=== PATIENT | male | born 1945 | race Caucasian/White ===

== ENCOUNTER 2016-04-08 23:54 | Inpatient (IN) | payer OTHER ==
[~2016-04-08] VITALS: Ht 180.3 cm; Wt 108.9 kg
[~2016-04-08 23:54] MED LIST: ATORVASTATIN CA10 M1 PO; GABAPENTIN300 M2 PO; PERCOCET 5-3251 EACH PO; SERTRALINE HCL100 MG PO
--- NOTE | 2016-04-09 00:03 | NUR ---
PT BIBA FROM HOME C/O AMS. PER EMS " CALLED EMS AROUND 2300 PT FELT WEAK AND PTS REPORTED AMS. PT ON ARRIVAL IS A&OX3, PT PLACED ON MONITOR, VSS, (PTS HR A LITTLE TACHY, DR SUBRAMANIAN IN FOR EVAL.
--- NOTE | 2016-04-09 00:06 | ED AMS/SEIZURE/WEAK/DIZZY ---
History of Present Illness General Chief Complaint: Altered Mental Status Stated Complaint: ALTERED MENTAL STATUS Source: patient Exam Limitations: no limitations Vital Signs & Intake/Output Vital Signs & Intake/Output Vital Signs Date Time Temp Pulse Resp B/P Pulse O2 O2 Flow FiO2 Ox Delivery Rate 04/09 0408 98.6 86 18 104/62 92 Room Air 04/09 0001 94 Room Air 04/08 2358 98.7 100 18 117/69 94 Room Air ED Intake and Output 04/09 0000 04/08 1200 Intake Total Output Total Balance Patient 210 lb Weight Allergies Coded Allergies: NO KNOWN ALLERGIES (05/09/11) Reconcile Medications Atorvastatin Calcium 10 MG TABLET 1 TAB PO CHOLESTEROL (Reported) Gabapentin 300 MG CAPSULE 1 CAP PO 4 TIMES/DAY NEUROPATHY (Reported) Oxycodone HCl/Acetaminophen (Percocet 5-325 MG Tablet) 5 MG-325 MG TABLET 1 TAB PO BID PRN PAIN Sertraline HCl 100 MG TABLET 1 TAB PO DAILY UNK (Reported) Triage Note: PT BIBA FROM HOME C/O AMS. PER EMS " CALLED EMS AROUND 2300 PT FELT WEAK AND PTS REPORTED AMS. PT ON ARRIVAL IS A&OX3, PT PLACED ON MONITOR, VSS, (PTS HR A LITTLE TACHYDR SUBRAMANIAN IN FOR EVAL. Triage Nurses Notes Reviewed? yes Onset: Gradual Duration: hour(s): Timing: recent history Injury Environment: home Severity: moderate Modifying Factors: Improves With: rest. Associated Symptoms: weakness HPI: 70-year-old gentleman with a history of vascular dementia presents with increased weakness. His states that he developed a shuffling gait some time after and her. It took them one hour to climb 6 steps. He was also confused and minimally responsive for a period of several hours. His states that in the ED he is presently still slightly confused but improved from the episode at home. He has no fever chills nausea vomiting diarrhea chest pain shortness of breath. Past History Travel History Traveled to [place] past 21 day No Medical History Any Pertinent Medical History? see below for history Neurological: vertigo EENT: NONE Cardiovascular: NONE Respiratory: NONE Gastrointestinal: NONE Hepatic: NONE Renal: RENAL CALCULI Musculoskeletal: LOW BACK PAIN CHRONIC Psychiatric: NONE Endocrine: NONE Blood Disorders: NONE Cancer(s): NONE Other Medical Hx: peripheral neuropathy, MULTIPLE falls, dementia, hyper lipidemia and depression Surgical History Surgical History: non-contributory Psychosocial History What is your primary language Colombian Tobacco Use: Refused to answer Family History Hx Contributory? No Review of Systems Review of Systems Constitutional: Reports: no symptoms. EENTM: Reports: no symptoms. Respiratory: Reports: no symptoms. Cardiovascular: Reports: no symptoms. GI: Reports: no symptoms. Genitourinary: Reports: no symptoms. Musculoskeletal: Reports: no symptoms. Skin: Reports: no symptoms. Neurological/Psychological: Reports: no symptoms. Hematologic/Endocrine: Reports: no symptoms. Immunologic/Allergic: Reports: no symptoms. All Other Systems: Reviewed and Negative Physical Exam Physical Exam General Appearance: well developed/nourished, no apparent distress, alert, awake Head: atraumatic, normal appearance Eyes: Bilateral: normal appearance, PERRL, EOMI. Ears, Nose, Throat: normal pharynx, normal ENT inspection Neck: normal inspection, supple, full range of motion Respiratory: normal breath sounds, chest non-tender, no respiratory distress, quiet respiration, lungs clear Cardiovascular: regular rate/rhythm Gastrointestinal: normal bowel sounds, soft, non-tender, no organomegaly Extremities: normal range of motion Neurologic/Psych: no motor/sensory deficits, awake, alert, a and Ox 2 Reflexes: 1+: bicep (R), bicep (L), knee (R), knee (L). Skin: intact, normal color, warm/dry Core Measures ACS in differential dx? No CVA/TIA Diagnosis: No Severe Sepsis Present: No Septic Shock Present: No Progress Differential Diagnosis: CVA/stroke, drug intoxication, electrolyte imbalance, hypoglycemia, intracranial Hem., intracranial mass/tumor Plan of Care: Orders Procedure Date/time Status Nothing by Mouth 04/09 B Active Saline Lock 04/[address] in observation 04/09 411 Active Misc Message 04/09 411 Active ED Holding Orders 04/09 411 Active Vital Signs 04/09 411 Active Code Status 04/09 411 Active Patient Data 04/09 040 Active Add-on Test (ER Only) 04/09 0346 Active URINALYSIS 04/09 0236 Complete URINE DRUG SCREEN FOR ER ONLY 04/09 8 Complete TROPONIN LEVEL 04/09 8 Complete ETHANOL 04/09 8 Complete COMPREHENSIVE METABOLIC PANEL 04/09 8 Complete CBC WITHOUT DIFFERENTIAL 04/09 8 Complete EKG 04/09 8 Active Intake & Output 04/08 2123 Active Laboratory Tests 04/09/16 0236: Urine Opiates Screen 120.00, Methadone Screen 41, Barbiturate Screen < 60, Ur Phencyclidine Scrn < 6.00, Amphetamines Screen < 100, U Benzodiazepines Scrn 134 , Urine Cocaine Screen < 50, Urine Cannabis Screen < 5.00, Urine Color YEL, Urine Clarity CLEAR, Urine pH 6.0, Ur Specific [place] 1.025, Urine Protein 30 H, Urine Ketones TRACE H, Urine Nitrite NEG, Urine Bilirubin NEG, Urine Urobilinogen 0.2, Ur Leukocyte Esterase TRACE H, Ur Microscopic SEDIMENT EXAMINED, Urine RBC RARE, Urine WBC 3-5 H, Hyaline Casts 1-3 H, Urine Mucus RARE, Urine Hemoglobin TRACE-INTACT H, Urine Glucose NEG 04/09/16 0040: Anion Gap 9, Estimated GFR 54 L, BUN/Creatinine Ratio 15.4, Glucose 120 H, Calcium 9.1, Total Bilirubin 0.7, AST 17, ALT 32, Alkaline Phosphatase 78, Troponin I < 0.01, Total Protein 7.0, Albumin 4.0, Globulin 3.0, Albumin/ Globulin Ratio 1.3, CBC w Diff NO MAN DIFF REQ, RBC 4.63 L, MCV 85.7, MCH 29.6, RDW 13.4, MPV 9.1, Gran % 91.1 H, Lymphocytes % 3.3 L, Monocytes % 4.5, Eosinophils % 1.0, Basophils % 0.1, Absolute Granulocytes 13.6 H, Absolute Lymphocytes 0.5 L, Absolute Monocytes 0.7 H, Absolute Eosinophils 0.2, Absolute Basophils 0, PUBS MCHC 34.5, Serum Alcohol < 10.0 Diagnostic Imaging: Viewed by Me: CT Scan. Discussed w/RAD: CT Scan. Radiology Impression: head CT: No acute disease CXR Impression: mild central fullness without overt edema Initial ED EKG: normal axis, normal intervals, normal p-waves, normal QRS complex, normal sinus rhythm Comments: PATIENT: ENRIKE HUNTLEY PRESENT AGE: 70 PATIENT ACCOUNT NO: [id number] : 43 LOCATION: [facility] ORDERING PHYSICIAN: SADE SUBRAMANIAN MD SERVICE DATE: 04/09/16 EXAM TYPE: CAT - CT HEAD WO IV CONTRAST EXAMINATION: CT HEAD WITHOUT CONTRAST CLINICAL INFORMATION: Mental status change. COMPARISON: Head CT May 05 2010. TECHNIQUE: Contiguous axial imaging was performed from the skull base to vertex without intravenous administration of contrast. FINDINGS: There is no intracranial hemorrhage, hydrocephalus, extra-axial surface collection, midline shift, or other herniation pattern. Moderate chronic microangiopathy and global cerebral volume loss. Johnson to white matter differentiation is diffusely maintained without evidence of an evolved acute territorial infarct. The basilar cisterns are preserved. No significant soft tissue abnormality. No acute osseous abnormality. There is mild mucosal thickening throughout the ethmoid air cells. The remaining visualized paranasal sinuses and the mastoid air cells are well-aerated. IMPRESSION: - No acute intracranial abnormality. - Moderate chronic microangiopathy and global cerebral volume loss. DICTATED BY: DIRK BOWIE MD DATE/TIME DICTATED:04/09/16200 DAILY SALES AUDIT CLERK:DUBOSE DATE/TIME TRANSCRIBED:04/09/16200 CONFIDENTIAL, DO NOT COPY WITHOUT APPROPRIATE AUTHORIZATION. <Electronically signed in Other Vendor System> SIGNED BY: DIRK BOWIE MD 04/09/16209 PATIENT: ENRIKE HUNTLEY PRESENT AGE: 70 PATIENT ACCOUNT NO: [id number] : 43 LOCATION: [facility] ORDERING PHYSICIAN: SADE SUBRAMANIAN MD SERVICE DATE: 04/09/16 EXAM TYPE: RAD - XRY-PORTABLE CHEST XRAY EXAMINATION: XR PORTABLE CHEST CLINICAL INFORMATION: Hypoxia. COMPARISON: Chest x-ray 12/23/2015. TECHNIQUE: Portable AP view of the chest was obtained. FINDINGS: Low lung volumes. Mild bibasilar atelectasis. No focal consolidation, pleural effusion, or pneumothorax. Central vascular congestion without overt edema. Cardiac silhouette is mildly enlarged and unchanged. There are no acute osseous findings. IMPRESSION: Low lung volumes with mild bibasilar opacities that are favored to reflect atelectasis. Central vascular congestion without overt edema. DICTATED BY: DIRK BOWIE MD DATE/TIME DICTATED:04/09/16140 DAILY SALES AUDIT CLERK:DUBOSE DATE/TIME TRANSCRIBED:04/09/16140 CONFIDENTIAL, DO NOT COPY WITHOUT APPROPRIATE AUTHORIZATION. <Electronically signed in Other Vendor System> SIGNED BY: DIRK BOWIE MD 04/09/16146 Departure Departure Disposition: STILL A PATIENT Condition: Stable Clinical Impression Primary Impression: Weakness Referrals: UNKNOWN (PCP/Family) Departure Forms: Customer Survey General Discharge Information Observation Note Spoke With: MELISSA GAMBOA MD Physician Advisor Notified: DIRK PARSONS DO Place Patient In: Non-ED OBS Care Area Rationale for Observation: My rational for observation is as follows . Patient with episode of profound weakness of uncertain etiology. The differential includes TIA versus parkinsonism versus progressive dementia. Patient merits urgent neurologic consultation possibly an MRI as well as a PT OT consult.
--- NOTE | 2016-04-09 00:44 | NUR ---
IV ACCESS ESTABLISHED BY THIS RN LAC #[id number], LABS DRAWN AND SENT TO LAB ([facility], [facility], [facility], [place], [facility]. PT INFORMED A URINE SAMPLE IS NEEDED. URINAL GIVEN TO PT
[2016-04-09 01:10] LABS: ABSOLUTE BASOPHIL COUNT 0 /CUMM (0.0-0.2); ABSOLUTE EOSINOPHIL COUNT 0.2 /CUMM (0.0-0.7); ABSOLUTE GRANULOCYTE CT 13.6 /CUMM (1.4-6.5); ABSOLUTE LYMPH COUNT 0.5 /CUMM (1.2-3.4); ABSOLUTE MONOCYTE COUNT 0.7 /CUMM (0.10-0.60); BASOPHIL % 0.1 % (0.0-2.0); HEMATOCRIT 39.7 % (42-52); MEAN CORPUSCULAR HGB 29.6 PG (27.0-31.0); MEAN CORPUSCULAR HGB CONC 34.5 G/DL (33.0-37.0); MEAN CORPUSCULAR VOLUME 85.7 FL (80.0-94.0); MEAN PLATELET VOLUME 9.1 FL (7.4-10.4); RBC DISTRIBUTION WIDTH 13.4 % (11.5-14.5); RED BLOOD CELL CT 4.63 /CUMM (4.70-6.10); WHITE BLOOD CELL COUNT 14.9 /CUMM (4.8-10.8)
[2016-04-09 01:33] LABS: GRANULOCYTE % 91.1 % (42.2-75.2); PLATELET COUNT 190 /CUMM (130-400)
--- NOTE | 2016-04-09 01:38 | NUR ---
PT TO CT SCAN
--- NOTE | 2016-04-09 01:42 | NUR ---
PT BACK FROM CT SCAN
--- NOTE | 2016-04-09 01:47 | RADIOLOGY REPORT ---
EXAMINATION: XR PORTABLE CHEST CLINICAL INFORMATION: Hypoxia. COMPARISON: Chest x-ray 12/23/2015. TECHNIQUE: Portable AP view of the chest was obtained. FINDINGS: Low lung volumes. Mild bibasilar atelectasis. No focal consolidation, pleural effusion, or pneumothorax. Central vascular congestion without overt edema. Cardiac silhouette is mildly enlarged and unchanged. There are no acute osseous findings. IMPRESSION: Low lung volumes with mild bibasilar opacities that are favored to reflect atelectasis. Central vascular congestion without overt edema.
--- NOTE | 2016-04-09 02:10 | CT SCAN REPORT ---
EXAMINATION: CT HEAD WITHOUT CONTRAST CLINICAL INFORMATION: Mental status change. COMPARISON: Head CT May 05 2010. TECHNIQUE: Contiguous axial imaging was performed from the skull base to vertex without intravenous administration of contrast. FINDINGS: There is no intracranial hemorrhage, hydrocephalus, extra-axial surface collection, midline shift, or other herniation pattern. Moderate chronic microangiopathy and global cerebral volume loss. Johnson to white matter differentiation is diffusely maintained without evidence of an evolved acute territorial infarct. The basilar cisterns are preserved. No significant soft tissue abnormality. No acute osseous abnormality. There is mild mucosal thickening throughout the ethmoid air cells. The remaining visualized paranasal sinuses and the mastoid air cells are well-aerated. IMPRESSION: - No acute intracranial abnormality. - Moderate chronic microangiopathy and global cerebral volume loss.
--- NOTE | 2016-04-09 02:40 | NUR ---
[facility] D[facility]RELL SENT URINE TRIO AND AMBULATED PT WITH STEADY GAIT USING WALKER.
--- NOTE | 2016-04-09 03:15 | NUR ---
CRITICAL TEST RESULTS [id number] ENRIKE HUNTLEY 70 M TESTS AND RESULTS: LACTIC 4.4 Results received and read back by: SHEEBA METCALF Results received date and time: 04/09/16315 The following provider was notified of the results, and read the results back: RICCIBARBARA Notified date and time: 04/09/16 at 0316
--- NOTE | 2016-04-09 03:29 | NUR ---
THIS RN TRIED TO CALL THE LAB TO SEE IF PTS URINE HAS RESULTS, NO ANSWER IN THE LAB
--- NOTE | 2016-04-09 03:46 | NUR ---
DR SUBRAMANIAN IN FOR POC
--- NOTE | 2016-04-09 04:28 | History & Physical ---
BILLY KING,[facility] [place] 04/09/16 0428: General Information and HPI MD Statement: I have seen and personally examined ENRIKE HUNTLEY and documented this H&P. The patient is a 70 year old M who presented with a patient stated chief complaint of confusion, leg weakness and shuffling gait. Source of Information: patient, family Exam Limitations: no limitations History of Present Illness: Mr. Huntley is a 70 y/o M with PMHx of vascular parkinsonism, peripheral neuropathy , HTN and dementia who presents to the ED with confusion, leg weakness and shuffling gait. The night of current presentation, patient's found him slouched on the couch and unable to get up. He could only shuffle his feet a few steps and was very confused and lethargic. Of note, patient walks with a walker at baseline. She called EMS who brought patient to the ED. By the time patient was seen in the ED, his gait had improved but he was still not back to baseline and appeared cautious and slow when walking, per his . His confusion had improved as well. Patient endorsed headache and dizziness but no falls. There was no chest pain, palpitations or shortness of breath. Of note, patient had a flu shot in the morning prior to current presentation. Patient follows up with a neurologist at [facility] and was diagnosed with vascular parkinsonism per his . Allergies/Medications Allergies: Coded Allergies: NO KNOWN ALLERGIES (05/09/11) Past History Travel History Traveled to [place] past 21 day No Medical History Neurological: dementia, peripheral neuropathy, vertigo, vascular parkinsonism EENT: NONE Cardiovascular: hypertension, hyperlipidemia Respiratory: NONE Gastrointestinal: NONE Hepatic: NONE Renal: nephrolithiasis Musculoskeletal: chronic back pain, falls Psychiatric: depression Endocrine: NONE Blood Disorders: NONE Cancer(s): NONE Surgical History Surgical History: non-contributory Past Family/Social History Psychosocial History Where do you live? Home Functional Ability Ambulation: walker Review of Systems Review of Systems Constitutional: Reports: no symptoms. EENTM: Reports: no symptoms. Cardiovascular: Denies: chest pain, palpitations. Respiratory: Denies: short of breath. GI: Reports: no symptoms. Denies: constipation, diarrhea. Genitourinary: Reports: no symptoms. Musculoskeletal: Reports: no symptoms. Skin: Reports: no symptoms. Neurological/Psychological: Reports: confusion, unable to move lower ext, weakness. Hematologic/Endocrine: Reports: no symptoms. Immunologic/Allergic: Reports: no symptoms. All Other Systems: Reviewed and Negative Exam & Diagnostic Data Last 24 Hrs of Vital Signs/I&O Vital Signs Date Time Temp Pulse Resp B/P Pulse O2 O2 Flow FiO2 Ox Delivery Rate 04/09 0857 98.1 71 20 110/54 92 Room Air 04/09 0800 Room Air 04/09 0559 98.5 76 18 116/68 95 Room Air 04/09 0408 98.6 86 18 104/62 92 Room Air 04/09 0001 94 Room Air 04/08 2358 98.7 100 18 117/69 94 Room Air Intake & Output 04/09 1600 04/09 0800 04/09 0000 Intake Total 70 Output Total 150 Balance -80 Intake, IV 20 Intake, Oral 50 Output, Urine 150 Patient 108.862 kg 95.254 kg Weight Physical Exam General Appearance Alert, Cooperative, No Acute Distress, Follows Commands Skin No Rashes HEENT PERRLA Neck Supple, No JVD Cardiovascular Regular Rate, Normal S1, Normal S2 Lungs Clear to Auscultation Abdomen Soft, No Tenderness, Positive Bowel Sounds Neurological Normal Speech, Strength at 5/5 X4 Ext, Sensation Intact, Cranial Nerves 3-12 NL Extremities No Clubbing, No Cyanosis, No Edema Last 24 Hrs of Labs/Rm: Laboratory Tests 04/09/16 0635: Anion Gap 10, Estimated GFR 60, BUN/Creatinine Ratio 16.7, Phosphorus 4.0, Magnesium 2.1, Troponin I < 0.01, Triglycerides 123, Cholesterol 143, LDL Cholesterol, Calc 81, HDL Cholesterol 38 L, Cholesterol/HDL Ratio 4, 25-OH Vitamin D Total 30.0, CBC w Diff NO MAN DIFF REQ, RBC 4.26 L, MCV 87.0, MCH 29.8, RDW 13.3, MPV 9.0, Gran % 82.8 H, Lymphocytes % 9.7 L, Monocytes % 5.7, Eosinophils % 1.5, Basophils % 0.3, Absolute Granulocytes 9.6 H, Absolute Lymphocytes 1.1 L, Absolute Monocytes 0.7 H, Absolute Eosinophils 0.2, Absolute Basophils 0, PUBS MCHC 34.2 04/09/16 0236: Urine Opiates Screen 120.00, Methadone Screen 41, Barbiturate Screen < 60, Ur Phencyclidine Scrn < 6.00, Amphetamines Screen < 100, U Benzodiazepines Scrn 134 , Urine Cocaine Screen < 50, Urine Cannabis Screen < 5.00, Urine Color YEL, Urine Clarity CLEAR, Urine pH 6.0, Ur Specific [place] 1.025, Urine Protein 30 H, Urine Ketones TRACE H, Urine Nitrite NEG, Urine Bilirubin NEG, Urine Urobilinogen 0.2, Ur Leukocyte Esterase TRACE H, Ur Microscopic SEDIMENT EXAMINED, Urine RBC RARE, Urine WBC 3-5 H, Hyaline Casts 1-3 H, Urine Mucus RARE, Urine Hemoglobin TRACE-INTACT H, Urine Glucose NEG 04/09/16 0040: Anion Gap 9, Estimated GFR 54 L, BUN/Creatinine Ratio 15.4, Glucose 120 H, Calcium 9.1, Total Bilirubin 0.7, AST 17, ALT 32, Alkaline Phosphatase 78, Troponin I < 0.01, Total Protein 7.0, Albumin 4.0, Globulin 3.0, Albumin/ Globulin Ratio 1.3, CBC w Diff NO MAN DIFF REQ, RBC 4.63 L, MCV 85.7, MCH 29.6, RDW 13.4, MPV 9.1, Gran % 91.1 H, Lymphocytes % 3.3 L, Monocytes % 4.5, Eosinophils % 1.0, Basophils % 0.1, Absolute Granulocytes 13.6 H, Absolute Lymphocytes 0.5 L, Absolute Monocytes 0.7 H, Absolute Eosinophils 0.2, Absolute Basophils 0, PUBS MCHC 34.5, Serum Alcohol < 10.0 Microbiology 04/09 632 URINE ROUT: Urine Culture - COLB 04/09 632 BLOOD: Blood Culture - COLB 04/09 632 BLOOD: Blood Culture - COLB Diagnostic Data EKG Results NSR CXR Results Low lung volumes with mild bibasilar opacities that are favored to reflect atelectasis. Central vascular congestion without overt edema. Other Results CT HEAD W/O IV CONTRAST: - No acute intracranial abnormality. - Moderate chronic microangiopathy and global cerebral volume loss. Assessment/Plan Assessment: Mr. Huntley is a 70 y/o M with PMHx of vascular parkinsonism, peripheral neuropathy and dementia who presents to the ED with confusion, leg weakness and shuffling gait. #Confusion/leg weakness/shuffling gait: Symptoms could represent progression of vascular parkinsonism although TIA needs to be ruled out. CT Head with chronic microangiopathy and global cerebral volume loss but no acute intracranial abnormalities. * Admit to telemetry for continuous cardiac monitoring. * Neurology consult placed. Appreciate their recs. * NPO pending swallow eval. * Carotid Doppler US ordered to evaluate for carotid artery stenosis. * ECHO ordered to assess for embolic source. * PT/OT consult. * Continue daily low-dose aspirin. * High dose statin, atorvastatin 80 mg PO QD, started in light of significant cerebrovascular disease. Patient was taking atorvastatin 10 mg PO QD prior to admission. #NIYAH: Cr elevated to 1.3 on admission. Previous Cr WNL (0.9) in April 2011. Likely pre-renal 2/2 poor dehydration. * Monitor lytes and kidney function. * Hydrate with 1 bag of NS @ 75 cc/hr. * Avoid nephrotoxic medications. #Leukocytosis: WBC 14.9 on admission. Of unclear etiology. Patient is afebrile without any signs/symptoms of infection. Urinalysis unremarkable. CXR with no evidence of pneumonia. Could be partially secondary to volume contraction, given NIYAH. * Monitor fever, WBC and for signs/symptoms of infection. * BCx and UCx ordered. * Monitor off antibiotics. #Peripheral neuropathy: * Continue prior to admission gabapentin 300 mg PO QID and sertraline 100 mg PO QD. Diet: NPO Fluids: NS @ 75 cc/hr Pain: Tylenol 650 mg PO Q6H PRN for mild pain (scale 1-3) DVT PPx: HSQ and ALPs CODE: DNR/DNI As Ranked By This Provider Problem List: 1. Confusion 2. Leg weakness, bilateral 3. Shuffling gait 4. Vascular parkinsonism 5. Dementia 6. Leukocytosis 7. Peripheral neuropathy 8. NIYAH (acute kidney injury) Core Measures/Miscellaneous Acute Coronary Syndrome ACS Diagnosis: No Cerebrovascular Accident CVA/TIA Diagnosis: No Congestive Heart Failure CHF Diagnosis: No Venous Thromboembolism VTE Risk Factors: Acute medical illness, Age > 40, Immobility, paresis, Obesity VTE Prophylaxis Ordered Inpt: Mech & Pharm No Mech VTE prophylaxis d/t: No contraindications No VTE Pharm Prophylaxis d/t: No contraindications VTE Diagnosis: No VTE Type: NONE VTE Confirmed by (Test): NONE Severe Sepsis Severe Sepsis Present: No Septic Shock Septic Shock Present: No Miscellaneous Documentation Attending Case Discussed With: CHANTEL JUAREZ MD Primary Care Physician: UNKNOWN Patient sees these Specialists Neurologist at [facility] Level of Patient Care: Telemetry EDWIN TIDWELL 04/09/16 0614: General Information and HPI Allergies/Medications Home Med list Alfuzosin HCl (Alfuzosin HCl ER) 10 MG TAB.ER.24H 1 TAB PO DAILY HTN ( Reported) Aspirin (Ecotrin*) 81 MG TABLET.DR 1 TAB PO DAILY HTN (Reported) Atorvastatin Calcium 10 MG TABLET 1 TAB PO CHOLESTEROL (Reported) Gabapentin 300 MG CAPSULE 1 CAP PO 4 TIMES/DAY NEUROPATHY (Reported) Oxycodone HCl/Acetaminophen (Percocet 5-325 MG Tablet) 5 MG-325 MG TABLET 1 TAB PO BID PRN PAIN Sertraline HCl 100 MG TABLET 1 TAB PO DAILY UNK (Reported) Resident Review Statement Resident Statement: examined this patient, discussed with landscape maintenance internship, agreed with landscape maintenance internship Other Findings: Patient is a 70-year-old gentleman with past medical history significant for vascular dementia, possible underlying parkinsonism, has been seen and evaluated at [facility], presented to the ED with a chief complaint of confusion lower extremity weakness and shuffling gait. The told that since evening last night patient was very confused and lethargic, developed shuffling gait and his symptoms were getting worse to the point that he could barely move. His symptoms are concerning and EMS was called in and was brought to the ER for further assessment. In the ER patient denied any chest discomfort or breathing or palpitations. Reported some dizziness without any lightheadedness or falls. He had a flu shot in the morning yesterday. Denies any diarrhea or constipation. His symptoms gradually improved after arrival in the ER. He had an extensive workup done at [facility] for his vascular dementia, has been diagnosed with possible parkinsonism. Vitals on admission: Depression 98.7, pulse 100, respiratory rate 18, blood pressure 107/69 on room air. On examination general Appearance: Alert, No Acute Distress Skin: Grossly normal HEENT: PEERLA Neck: Supple, No JVD Cardiovascular: S1 plus S2 +0 without any murmurs Lungs: bilateral basal crackles Abdomen: Normal Bowel Sounds, Soft, No Tenderness Neurological: Normal Speech, Strength at 5/5 X4 Ext, Cranial Nerves 3-12 NL, Reflexes 2+ Extremities: No edema in the lower lower extremity. Pertinent labs: Leukocytosis 14.9, with H&H 13.7/39.7, and elevated creatinine 1.3. Chest x-ray :Low lung volumes with mild bibasilar opacities that are favored to reflect atelectasis. Central vascular congestion without overt edema. CT head :No acute intracranial abnormality. Moderate chronic microangiopathy and global cerebral volume loss Assessment and plan: 1 acute onset confusion lower extremity weakness without any clear focal deficits: Possible TIA/worsening parkinsonism: * We'll admit the patient to telemetry floor * Obtain neurology consult in the morning * We'll consider doing carotid Doppler ultrasound and echocardiogram * Performed swallow evaluation the morning * PT/OT consult in the morning. * Continue aspirin increase her atorvastatin 2. Leukocytosis * .Chest x-ray revealed Low lung volumes with mild bibasilar opacities that are favored to reflect atelectasis. * Send blood cultures * Monitor vitals every 4 hours * Hold any antibiotics for now. 3. History of peripheral neuropathy * Continue home dose of sertraline and gabapentin 4. Acute kidney injury * Elevated creatinine * Will give one bag of normal saline * Repeat BEP in the morning * Avoid nephrotoxic agents. 5. DVT prophylaxis with heparin Patient is DNR/DNI CHANTEL JUAREZ MD 04/09/16 2316: Core Measures/Miscellaneous Cerebrovascular Accident CVA/TIA Diagnosis: Yes Attending MD Review Statement Attending Statement Attending MD Statement: examined this patient, discuss w/resident/PA/CEILING CLEANER, agreed w/resident/PA/CEILING CLEANER, reviewed EMR data (avail), discussed with nursing, discussed with case mgmt, reviewed images, amended to note Attending Assessment/Plan: The patient is a 70 yo male with h/o Parkinson's, peripheral neuropathy, HTN, and dementia who presented in the ED with c/o confusion, "dizziness"- vertigo, falling and weakness in his upper and lower extremities (lower > upper). EMS was called when his noted that he could not get up. In the ED symptoms improved. He denied any chest pain, palpitations, dyspnea, or headache. Physical Exam: VS: T 98.7 P 100 R 18, BP 117/69, PO 94% RA HEENT- eyes- PERRLA- blind left eye, no nystagmus clark- moist mucosa Neck: no JVD or bruits Chest: clear Cor: RRR, nl S1, S2 w/o murm Abd: BS+, soft, NT Ext: no edema, pulses 1+ Neuro: alert, poor historian, non-focal, gait not tested. Labs/Tests: as above, CT negative. Impression/Plan: #Transient LE weakness/Vertigo/Confusion- suspect posterior circulation CVA. Plan: Admit to Telemetry- monitor for arrhythmia. Carotid US/ECHO MRI of brain this morning (particular attention to post circulation). #NIYAH- mild with Cr 1.3. Most likely mildly volume depleted. Plan: IV hydration x 1 bag and follow. #Leukocytosis- most likely stress induced. Plan: Follow-up H/H. No antibiotics at present. #Peripheral Neuropathy- stable. Plan: Continue Gabapentin.
--- NOTE | 2016-04-09 05:09 | NUR ---
REPORT GIVEN TO MEEK CRYSTAL.
--- NOTE | 2016-04-09 05:22 | NUR ---
HOUSE STAFF IN
[2016-04-09] MEDS ORDERED: ASPIRIN EC81 M1 PO (05:57)
[2016-04-09] MEDS ORDERED: ALFUZOSIN HCL E10 MG PO (05:58)
[2016-04-09 05:59] VITALS: BP 116/68
[2016-04-09 07:49] LABS: ABSOLUTE BASOPHIL COUNT 0 /CUMM (0.0-0.2); ABSOLUTE EOSINOPHIL COUNT 0.2 /CUMM (0.0-0.7); ABSOLUTE GRANULOCYTE CT 9.6 /CUMM (1.4-6.5); ABSOLUTE LYMPH COUNT 1.1 /CUMM (1.2-3.4); ABSOLUTE MONOCYTE COUNT 0.7 /CUMM (0.10-0.60); BASOPHIL % 0.3 % (0.0-2.0); EOSINOPHIL % 1.5 % (0-5); GRANULOCYTE % 82.8 % (42.2-75.2); MEAN CORPUSCULAR HGB 29.8 PG (27.0-31.0); MEAN CORPUSCULAR HGB CONC 34.2 G/DL (33.0-37.0); PLATELET COUNT 173 /CUMM (130-400); RBC DISTRIBUTION WIDTH 13.3 % (11.5-14.5); RED BLOOD CELL CT 4.26 /CUMM (4.70-6.10); WHITE BLOOD CELL COUNT 11.6 /CUMM (4.8-10.8)
--- NOTE | 2016-04-09 08:23 | PN- Housestaff ---
MARYJANEJENNIFER 04/09/16 0822: Subjective Follow-up For: 1. TIA/CVA 2. Acute kidney injury 3. Parkinson's Complaints: no complaints Subjective: Interval history: This morning Mr. Marquez reports improvement in his mentation and ability to ambulate. He reports that lower extremity weakness has improved. He denies any dizziness, headache, blurred vision, chest pain, palpitations, shortness of breath. Review of Systems Constitutional: Reports: see HPI. EENTM: Reports: no symptoms. Cardiovascular: Reports: no symptoms. Respiratory: Reports: no symptoms. Gastrointestinal: Reports: see HPI. Genitourinary: Reports: no symptoms. Musculoskeletal: Reports: see HPI. Objective Last 24 Hrs of Vital Signs/I&O Vital Signs Date Time Temp Pulse Resp B/P Pulse O2 O2 Flow FiO2 Ox Delivery Rate 04/09 0857 98.1 71 20 110/54 92 Room Air 04/09 0800 Room Air 04/09 0559 98.5 76 18 116/68 95 Room Air 04/09 0408 98.6 86 18 104/62 92 Room Air 04/09 0001 94 Room Air 04/08 2358 98.7 100 18 117/69 94 Room Air Intake & Output 04/09 1600 04/09 0800 04/09 0000 Intake Total 70 Output Total 150 Balance -80 Intake, IV 20 Intake, Oral 50 Output, Urine 150 Patient 240 lb 210 lb Weight Physical Exam General Appearance: Alert, Oriented X3, Cooperative, No Acute Distress Skin: No Breakdown HEENT: PERRLA, EOMI, Mucous Membr. moist/pink Neck: Supple Cardiovascular: Regular Rate, Normal S1, Normal S2 Lungs: Clear to Auscultation, Normal Air Movement Abdomen: Normal Bowel Sounds, Soft, No Tenderness Neurological: Normal Speech, Strength at 5/5 X4 Ext, Normal Tone, Sensation Intact, Cranial Nerves 3-12 NL Extremities: No Edema, Normal Pulses Current Medications: Current Medications Sig/Debra Start time Last Medication Dose Route Stop Time Status Admin Acetaminophen 650 MG Q6P PRN 04/09 0600 AC PO Aspirin Buffered 81 MG DAILY 04/09 1000 AC PO Atorvastatin Calcium 10 MG 1700 04/09 1700 AC PO Gabapentin 300 MG 4 TIMES/DAY 04/09 1000 AC PO Heparin Sodium 5,000 UNIT Q8 04/09 0600 AC (Porcine) SC Sertraline HCl 100 MG DAILY 04/09 1000 AC PO Sodium Chloride 1,000 ML ONCE ONE 04/09 0600 AC 04/09 IV 04/09 1919 0618 Last 24 Hrs of Lab/Rm Results Last 24 Hrs of Labs/Mics: Laboratory Tests 04/09/16 0635: Anion Gap 10, Estimated GFR 60, BUN/Creatinine Ratio 16.7, Phosphorus Pending, Magnesium Pending, Troponin I < 0.01, Triglycerides Pending, Cholesterol Pending , LDL Cholesterol, Calc Pending, HDL Cholesterol Pending, Cholesterol/HDL Ratio Pending, 25-OH Vitamin D Total Pending, CBC w Diff NO MAN DIFF REQ, RBC 4.26 L, MCV 87.0, MCH 29.8, RDW 13.3, MPV 9.0, Gran % 82.8 H, Lymphocytes % 9.7 L, Monocytes % 5.7, Eosinophils % 1.5, Basophils % 0.3, Absolute Granulocytes 9.6 H, Absolute Lymphocytes 1.1 L, Absolute Monocytes 0.7 H, Absolute Eosinophils 0.2, Absolute Basophils 0, PUBS MCHC 34.2 04/09/16 0236: Urine Opiates Screen 120.00, Methadone Screen 41, Barbiturate Screen < 60, Ur Phencyclidine Scrn < 6.00, Amphetamines Screen < 100, U Benzodiazepines Scrn 134 , Urine Cocaine Screen < 50, Urine Cannabis Screen < 5.00, Urine Color YEL, Urine Clarity CLEAR, Urine pH 6.0, Ur Specific [place] 1.025, Urine Protein 30 H, Urine Ketones TRACE H, Urine Nitrite NEG, Urine Bilirubin NEG, Urine Urobilinogen 0.2, Ur Leukocyte Esterase TRACE H, Ur Microscopic SEDIMENT EXAMINED, Urine RBC RARE, Urine WBC 3-5 H, Hyaline Casts 1-3 H, Urine Mucus RARE, Urine Hemoglobin TRACE-INTACT H, Urine Glucose NEG 04/09/16 0040: Anion Gap 9, Estimated GFR 54 L, BUN/Creatinine Ratio 15.4, Glucose 120 H, Calcium 9.1, Total Bilirubin 0.7, AST 17, ALT 32, Alkaline Phosphatase 78, Troponin I < 0.01, Total Protein 7.0, Albumin 4.0, Globulin 3.0, Albumin/ Globulin Ratio 1.3, CBC w Diff NO MAN DIFF REQ, RBC 4.63 L, MCV 85.7, MCH 29.6, RDW 13.4, MPV 9.1, Gran % 91.1 H, Lymphocytes % 3.3 L, Monocytes % 4.5, Eosinophils % 1.0, Basophils % 0.1, Absolute Granulocytes 13.6 H, Absolute Lymphocytes 0.5 L, Absolute Monocytes 0.7 H, Absolute Eosinophils 0.2, Absolute Basophils 0, PUBS MCHC 34.5, Serum Alcohol < 10.0 Microbiology 04/09 632 URINE ROUT: Urine Culture - ORD 04/09 632 BLOOD: Blood Culture - ORD 04/09 632 BLOOD: Blood Culture - ORD Assessment/Plan Assessment: 70-year-old gentleman with past medical history significant for vascular dementia, possible underlying parkinsonism, has been seen and evaluated at [facility], presented to the ED with a chief complaint of confusion lower extremity weakness and shuffling gait. Head CT: - No acute intracranial abnormality. - Moderate chronic microangiopathy and global cerebral volume loss. MRI head (04/09/2016): * Motion degraded study demonstrates a small area of possible acute infarction in the right middle cerebellar peduncle, superimposed upon advanced chronic small vessel ischemic changes and volume loss. * Problem list: 1. TIA/CVA: Acute infarct right middle cerebellar peduncle 2. Acute kidney injury 3. History of Parkinson's disease Plan: 1. TIA/CVA * MRI as indicated above. Will await neurology recommendations for follow-up * Patient passed bedside swallow evaluation. Heart healthy diet started * Follow-up lipid panel in the a.m. 2. Acute kidney injury * Baseline creatinine of 0.9, 1.3 on admission with interval improvement with fluid hydration * Follow-up renal function and discontinue fluids once tolerating by mouth intake * Patient's symptoms on admission could partially be secondary to gabapentin side effects in the setting of acute kidney injury. We'll decrease gabapentin from 300 down to 200 mg QID. Adjust back to his normal home dose once renal function has improved 3. History of Parkinson's disease * Stable at this time. Patient has an outpatient follow-up with her neurologist /maintenance trainer 4. Diet * Heart healthy 5. DVT prophylaxis * Heparin 5000 units subcutaneous 6. CODE STATUS * DNR/DNI Problem List: 1. Cerebellar infarction 2. Vascular parkinsonism 3. NIYAH (acute kidney injury) 4. Confusion Pain Ratin Pain Location: NA Pain Goal: Pain 4 or less Pain Plan: NA Tomorrow's Labs & Rationales: Lipid panel BEP: Acute kidney injury follow-up DVT/Prophylaxis: mechanical, pharmacological Consulting Request: Consulting Specialty: Neurology CHANTEL JUAREZ MD 04/09/16 2314: Attending MD Review Statement Attending Statement Attending MD Statement: examined this patient, discuss w/resident/PA/MACHINE RECORDS UNITS SUPERVISOR, agreed w/resident/PA/MACHINE RECORDS UNITS SUPERVISOR, reviewed EMR data (avail), discussed with nursing, discussed with case mgmt, reviewed images, amended to note Attending Assessment/Plan: The patient was seen and discussed with house staff.
--- NOTE | 2016-04-09 08:52 | Admission Certification ---
Admission Certification Certification Statement - As attending physician, I certify that at the time of - admission, based on clinical presentation, severity of - symptoms, need for further diagnostic testing and - therapeutic interventions, and risk of adverse outcomes - without in-hospital treatment, in my clinical assessment, - this patient requires an acute hospital stay for a minimum - of two nights or longer. I have also considered psychsocial - factors such as support system, advanced age, financial - issues, cognitive issues, and failed out-patient treatments, - past re-admission history, safety of patient, and lack of - compliance as applicable. Specific rationale supporting this admission is: Patient admitted to observation telemetry for possible TIA. Presented with vertigo/dizziness, falls, and generalized weakness. Needs monitoring, carotic US , MRI brain, Neuro consult.
[2016-04-09 08:57] VITALS: BP 110/54
--- NOTE | 2016-04-09 10:52 | MRI REPORT ---
EXAMINATION: MR BRAIN WITHOUT CONTRAST CLINICAL INFORMATION: 70-year-old man with weakness and vertigo. COMPARISON: 04/09/[address] TECHNIQUE: MRI of the brain without contrast was obtained using routine sequences. FINDINGS: There is a small region of potential restricted diffusion versus T2 shine through artifact in the right middle cerebellar peduncle that could reflect an area of acute ischemia. This is superimposed upon rather extensive patchy and confluent T2 hyperintense signal seen throughout the supratentorial and pontine white matter, most consistent with advanced chronic microvascular ischemic changes. There is moderate ventriculomegaly and diffuse sulcal widening due to accelerated chronic volume loss. No focal reduced diffusion is seen to suggest acute or subacute cerebral ischemia. No intracranial mass, intracerebral edema, intra-axial blood products, midline shift, or extra-axial collection is visualized. Normal arterial and venous vascular flow voids are present. Moderate mucosal thickening is noted in the ethmoid air cells, right greater than left. There is mild mucosal thickening in the remainder of the paranasal sinuses with a mucus retention cyst in the right maxillary sinus. IMPRESSION: Motion degraded study demonstrates a small area of possible acute infarction in the right middle cerebellar peduncle, superimposed upon advanced chronic small vessel ischemic changes and volume loss.
--- NOTE | 2016-04-09 12:18 | ULTRASOUND REPORT ---
EXAMINATION: US DUPLEX CAROTID AND VERTEBRAL CLINICAL INFORMATION: Confusion, possible TIA. Lower extremity weakness. COMPARISON: None. TECHNIQUE: Real-time ultrasound and Doppler techniques (integrating B-mode 2D vascular images, Doppler spectral analysis and color flow Doppler imaging) were utilized to interrogate the extracranial carotid and vertebral arteries bilaterally. The degree of stenosis determined by criteria similar to NASCET. FINDINGS: There is normal antegrade flow seen in both carotid arteries. There is a soft atherosclerotic plaque seen in both carotid bulbs and proximal ICA. On the right peak systolic/end diastolic velocity distal CCA measures 48/11 cm/second. Peak systolic/end diastolic velocity proximal ICA measures 47/20 cm/second. There is no significant stenosis. On the left peak systolic/end diastolic velocity distal CCA measures 70/17 cm/second. Peak systolic/end diastolic velocity left proximal ICA measures 68/18 cm/second. There is no significant stenosis. There is normal antegrade flow seen in left vertebral artery. The right vertebral artery is not seen. IMPRESSION: No hemodynamically significant stenosis in either carotid artery. Normal antegrade flow seen in left vertebral artery. The right vertebral artery is not visualized.
--- NOTE | 2016-04-09 14:45 | Cons- Neurology ---
General Information and HPI Consulting Request Date of Consult: 04/09/16 Requested By: CHANTEL JUAREZ MD History of Present Illness: 70-year-old male presents with acute low back pain and difficulty with walking. 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 Status. Status appeared to be stable until yesterday when he complained of acute low back pain and difficulty with walking. He took a Percocet; he then felt that he was unable to move his legs. Per notes, states that he appeared to be acutely confused. There was no fall. He denies previous trauma. No associated focal weakness or change in paresthesia. Allergies/Medications Allergies: Coded Allergies: NO KNOWN ALLERGIES (05/09/11) Home Med List: Alfuzosin HCl (Alfuzosin HCl ER) 10 MG TAB.ER.24H 1 TAB PO DAILY HTN ( Reported) Aspirin (Ecotrin*) 81 MG TABLET.DR 1 TAB PO DAILY HTN (Reported) Atorvastatin Calcium 10 MG TABLET 1 TAB PO CHOLESTEROL (Reported) Gabapentin 300 MG CAPSULE 1 CAP PO 4 TIMES/DAY NEUROPATHY (Reported) Oxycodone HCl/Acetaminophen (Percocet 5-325 MG Tablet) 5 MG-325 MG TABLET 1 TAB PO BID PRN PAIN Sertraline HCl 100 MG TABLET 1 TAB PO DAILY UNK (Reported) Current Medications: Current Medications Sig/Debra Start time Last Medication Dose Route Stop Time Status Admin Acetaminophen 650 MG Q6P PRN 04/09 0600 AC PO Aspirin Buffered 81 MG DAILY 04/09 1000 AC 04/09 PO 1141 Atorvastatin Calcium 10 MG 1700 04/09 1700 DC PO Atorvastatin Calcium 80 MG 1700 04/09 1700 AC PO Gabapentin 300 MG 4 TIMES/DAY 04/09 1000 DC PO Gabapentin 200 MG 4 TIMES/DAY 04/09 1000 AC 04/09 PO 1420 Heparin Sodium 5,000 UNIT Q8 04/09 0600 AC 04/09 (Porcine) SC 1420 Sertraline HCl 100 MG DAILY 04/09 1000 AC 04/09 PO 1142 Sodium Chloride 1,000 ML ONCE ONE 04/09 0600 AC 04/09 IV 04/09 1919 0618 Review of Systems Review of Systems: Occasional headache, and dizziness. 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 Occasionally falls No edema No recent fevers Notes memory dysfunction Other systems reviewed and negative Past History Travel History Traveled to [place] past 21 day No Medical History Blood Transfusion Hx: No Neurological: dementia, peripheral neuropathy, vertigo, vascular parkinsonism EENT: NONE Cardiovascular: hypertension, hyperlipidemia Respiratory: NONE Gastrointestinal: NONE Hepatic: NONE Renal: nephrolithiasis Musculoskeletal: chronic back pain, falls Psychiatric: depression Endocrine: NONE Blood Disorders: NONE Cancer(s): NONE PHYSIOTHERAPY AIDE/Reproductive: NONE Surgical History Surgical History: non-contributory Psychosocial History Where Do You Live? Home Smoking Status: Former Smoker Functional Ability Ambulation: walker Exam & Diagnostic Data Vital Signs and I&O Vital Signs Date Time Temp Pulse Resp B/P Pulse O2 O2 Flow FiO2 Ox Delivery Rate 04/09 0857 98.1 71 20 110/54 92 Room Air 04/09 0800 Room Air 04/09 0559 98.5 76 18 116/68 95 Room Air 04/09 0408 98.6 86 18 104/62 92 Room Air 04/09 0001 94 Room Air 04/08 2358 98.7 100 18 117/69 94 Room Air Intake & Output 04/09 1600 04/09 0800 04/09 0000 Intake Total 1060 70 Output Total 150 Balance 1060 -80 Intake, IV 460 20 Intake, Oral 600 50 Output, Urine 150 Patient 240 lb 210 lb Weight Physical Exam: Alert and in no distress, Heart sounds normal, no carotid bruits, distal pulses intact Oriented to place but not time, fund of knowledge impaired, recalls 2 out of 3 objects after 5 minutes time, no dysarthria or aphasia, fully cooperative during exam, attention span good Extraocular movements full, pupils reactive, right fundus could not be evaluated due to opacification, no facial weakness or facial sensory loss, palate tongue and shoulders intact, hearing grossly intact Normal tone and strength in upper and lower extremities No sensory loss to light touch Deep tendon reflexes hypoactive throughout Left plantar reflex questionably upgoing Deep tendon reflexes hypoactive Gait mildly unsteady Last 48 Hours of Lab Results: Laboratory Tests 04/09 04/09 0635 0236 Chemistry Sodium (137 - 145 mmol/L) 144 Potassium (3.5 - 5.1 mmol/L) 3.7 Chloride (98 - 107 mmol/L) 107 Carbon Dioxide (22 - 30 mmol/L) 26 Anion Gap (5 - 16) 10 BUN (9 - 20 mg/dL) 20 Creatinine (0.7 - 1.2 mg/dL) 1.2 Estimated GFR (>60 ml/min) 60 BUN/Creatinine Ratio (7 - 25 %) 16.7 Phosphorus (2.5 - 4.5 mg/dL) 4.0 Magnesium (1.6 - 2.3 mg/dL) 2.1 Troponin I (<0.11 ng/ml) < 0.01 Triglycerides (<150 mg/dL) 123 Cholesterol (< 200 MG/DL) 143 LDL Cholesterol, Calc (65 - 129 mg/dL) 81 HDL Cholesterol (40 - 60 mg/dL) 38 L Cholesterol/HDL Ratio (0.00 - 4.88 %) 4 25-OH Vitamin D Total (30 - 100 ng/ml) 30.0 Hematology CBC w Diff NO MAN DIFF REQ WBC (4.8 - 10.8 /CUMM) 11.6 H RBC (4.70 - 6.10 /CUMM) 4.26 L Hgb (14.0 - 18.0 G/DL) 12.7 L Hct (42 - 52 %) 37.0 L MCV (80.0 - 94.0 FL) 87.0 MCH (27.0 - 31.0 PG) 29.8 RDW (11.5 - 14.5 %) 13.3 Plt Count (130 - 400 /CUMM) 173 MPV (7.4 - 10.4 FL) 9.0 Gran % (42.2 - 75.2 %) 82.8 H Lymphocytes % (20.5 - 51.1 %) 9.7 L Monocytes % (1.7 - 9.3 %) 5.7 Eosinophils % (0 - 5 %) 1.5 Basophils % (0.0 - 2.0 %) 0.3 Absolute Granulocytes (1.4 - 6.5 /CUMM) 9.6 H Absolute Lymphocytes (1.2 - 3.4 /CUMM) 1.1 L Absolute Monocytes (0.10 - 0.60 /CUMM) 0.7 H Absolute Eosinophils (0.0 - 0.7 /CUMM) 0.2 Absolute Basophils (0.0 - 0.2 /CUMM) 0 PUBS MCHC (33.0 - 37.0 G/DL) 34.2 Toxicology Urine Opiates Screen (>2000 NG/ML) 120.00 Methadone Screen (>300 NG/ML) 41 Barbiturate Screen (>200 NG/ML) < 60 Ur Phencyclidine Scrn (>25 NG/ML) < 6.00 Amphetamines Screen (>1000 NG/ML) < 100 U Benzodiazepines Scrn (>200 NG/ML) 134 Urine Cocaine Screen (>300 NG/ML) < 50 Urine Cannabis Screen (>50 NG/ML) < 5.00 Urines Urine Color (YEL,AMB,STR) YEL Urine Clarity (CLEAR) CLEAR Urine pH (5.0 - 8.0) 6.0 Ur Specific [place] (1.001 - 1.035) 1.025 Urine Protein (NEG,<30 MG/DL) 30 H Urine Ketones (NEG) TRACE H Urine Nitrite (NEG) NEG Urine Bilirubin (NEG) NEG Urine Urobilinogen (0.1 - 1.0 EU/dl) 0.2 Ur Leukocyte Esterase (NEG) TRACE H Ur Microscopic SEDIMENT EXAMINED Urine RBC (0 - 5 /HPF) RARE Urine WBC (0 - 2 /HPF) 3-5 H Hyaline Casts (0/LPF) 1-3 H Urine Mucus (FEW,NONE) RARE Urine Hemoglobin (NEG) TRACE-INTACT H Urine Glucose (N MG/DL) NEG 04/09 0040 Chemistry Sodium (137 - 145 mmol/L) 143 Potassium (3.5 - 5.1 mmol/L) 4.1 Chloride (98 - 107 mmol/L) 106 Carbon Dioxide (22 - 30 mmol/L) 27 Anion Gap (5 - 16) 9 BUN (9 - 20 mg/dL) 20 Creatinine (0.7 - 1.2 mg/dL) 1.3 H Estimated GFR (>60 ml/min) 54 L BUN/Creatinine Ratio (7 - 25 %) 15.4 Glucose (65 - 99 mg/dL) 120 H Calcium (8.4 - 10.2 mg/dL) 9.1 Total Bilirubin (0.2 - 1.3 mg/dL) 0.7 AST (17 - 59 U/L) 17 ALT (21 - 72 U/L) 32 Alkaline Phosphatase (< 127 U/L) 78 Troponin I (<0.11 ng/ml) < 0.01 Total Protein (6.3 - 8.2 g/dL) 7.0 Albumin (3.5 - 5.0 g/dL) 4.0 Globulin (1.9 - 4.2 gm/dL) 3.0 Albumin/Globulin Ratio (1.1 - 2.2 %) 1.3 Hematology CBC w Diff NO MAN DIFF REQ WBC (4.8 - 10.8 /CUMM) 14.9 H RBC (4.70 - 6.10 /CUMM) 4.63 L Hgb (14.0 - 18.0 G/DL) 13.7 L Hct (42 - 52 %) 39.7 L MCV (80.0 - 94.0 FL) 85.7 MCH (27.0 - 31.0 PG) 29.6 RDW (11.5 - 14.5 %) 13.4 Plt Count (130 - 400 /CUMM) 190 MPV (7.4 - 10.4 FL) 9.1 Gran % (42.2 - 75.2 %) 91.1 H Lymphocytes % (20.5 - 51.1 %) 3.3 L Monocytes % (1.7 - 9.3 %) 4.5 Eosinophils % (0 - 5 %) 1.0 Basophils % (0.0 - 2.0 %) 0.1 Absolute Granulocytes (1.4 - 6.5 /CUMM) 13.6 H Absolute Lymphocytes (1.2 - 3.4 /CUMM) 0.5 L Absolute Monocytes (0.10 - 0.60 /CUMM) 0.7 H Absolute Eosinophils (0.0 - 0.7 /CUMM) 0.2 Absolute Basophils (0.0 - 0.2 /CUMM) 0 PUBS MCHC (33.0 - 37.0 G/DL) 34.5 Toxicology Serum Alcohol (<10 MG/DL) < 10.0 MRI IMPRESSION: Motion degraded study demonstrates a small area of possible acute infarction in the right middle cerebellar peduncle, superimposed upon advanced chronic small vessel ischemic changes and volume loss. CT head: IMPRESSION: - No acute intracranial abnormality. - Moderate chronic microangiopathy and global cerebral volume loss. Assessment/Plan Assessment: Severe low back pain, improved Gait disorder requiring walker Dementia MRI result appears equivocal Recommendations: Assessed by physical therapist and apparently now walking well with walker Cognitive impairment, if not done so obtain TSH and B12 level Outpatient physical therapy for gait disorder and low back pain Avoidance of narcotic analgesics Consult Acknowledgment - Thank you for your consult request.
[2016-04-09 15:30] VITALS: BP 108/68
--- NOTE | 2016-04-09 23:19 | Event Note ---
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 At this time we are unable to obtain the previous head MRI but she indicates that the current cerebellar findings MAY have been present previously but she is not 100% sure at this time * Report from Carotid Doppler on 04/09/2016 here at [facility]: No hemodynamic significant stenosis of either carotid artery. Normal anterior grade flow seen in the left vertebral artery. The right vertebral artery is not visualized * Patient's also indicates that his neurologist/complaint analyst have had discussions with regards to goals of care in not pursuing further intervention for his previous findings Assessment/recommendations: * Likely discrepancy with current carotid ultrasound report in comparison with [facility] records * AM team: Obtain prior records from [facility] (head MRI, MRA). Patient's brought a disc with previous MR of brain (In the pts chart). Touch base with radiologist to see if they can upload it and compare with the latest imaging * AM team: Discuss current findings with neurologist, patient and his with regards to desired further workup
[2016-04-09 23:23] VITALS: BP 156/96
--- NOTE | 2016-04-10 07:43 | PN- Housestaff ---
See Addendum Subjective Follow-up For: 1. TIA/CVA 2. Acute kidney injury 3. Parkinson's Tele-Events Since Last Visit: SR, HR 65-86 no overnight events Subjective: pt seen and examined. at bed side, reports improvement in his mentation and ability to ambulate but not completely back to baseline yet.. He denies any dizziness, headache, blurred vision, chest pain, palpitations, shortness of breath. Review of Systems Constitutional: Reports: see HPI. Objective Last 24 Hrs of Vital Signs/I&O Vital Signs Date Time Temp Pulse Resp B/P Pulse O2 O2 Flow FiO2 Ox Delivery Rate 04/10 0814 98.1 78 20 152/90 95 Room Air 04/10 0800 Room Air 04/09 2323 98.6 79 20 156/96 93 Room Air Intake & Output 04/10 1600 04/10 0800 04/10 0000 Intake Total 720 60 825 Output Total 200 Balance 520 60 825 Intake, IV 10 375 Intake, Oral 720 50 450 Output, Urine 200 Physical Exam General Appearance: Alert, Oriented X3, Cooperative Cardiovascular: Regular Rate, Normal S1, Normal S2, No Murmurs Lungs: Clear to Auscultation, Normal Air Movement Abdomen: Normal Bowel Sounds, Soft, No Tenderness Neurological: Strength at 5/5 X4 Ext, Cranial Nerves 3-12 NL, slightly slurred speech as per Extremities: No Clubbing, No Cyanosis, No Edema Current Medications: Current Medications Sig/Debra Start time Last Medication Dose Route Stop Time Status Admin Acetaminophen 650 MG Q6P PRN 04/09 0600 AC PO Aspirin Buffered 81 MG DAILY 04/09 1000 AC 04/10 PO 0906 Atorvastatin Calcium 80 MG 1700 04/09 1700 AC 04/09 PO 1708 Gabapentin 200 MG 4 TIMES/DAY 04/09 1000 AC 04/10 PO 1446 Heparin Sodium 5,000 UNIT Q8 04/09 0600 AC 04/10 (Porcine) SC 1447 Sertraline HCl 100 MG DAILY 04/09 1000 AC 04/10 PO 0906 Sodium Chloride 1,000 ML ONCE ONE 04/09 0600 DC 04/09 IV 04/09 1919 0618 Last 24 Hrs of Lab/Rm Results Last 24 Hrs of Labs/Mics: Laboratory Tests 04/10/16 0830: Anion Gap 13, Estimated GFR > 60, BUN/Creatinine Ratio 15.6, CBC w Diff NO MAN DIFF REQ, RBC 4.84, MCV 87.4, MCH 29.4, RDW 13.1, MPV 9.1, Gran % 66.4, Lymphocytes % 18.4 L, Monocytes % 7.5, Eosinophils % 7.5 H, Basophils % 0.2, Absolute Granulocytes 4.8, Absolute Lymphocytes 1.3, Absolute Monocytes 0.5, Absolute Eosinophils 0.5, Absolute Basophils 0, PUBS MCHC 33.7 Assessment/Plan Assessment: 70-year-old gentleman with past medical history significant for vascular dementia, possible underlying parkinsonism, has been seen and evaluated at [place], presented to the ED with a chief complaint of confusion lower extremity weakness and shuffling gait. Head CT: - No acute intracranial abnormality. - Moderate chronic microangiopathy and global cerebral volume loss. MRI head (04/09/2016): * Motion degraded study demonstrates a small area of possible acute infarction in the right middle cerebellar peduncle, superimposed upon advanced chronic small vessel ischemic changes and volume loss. * Problem list: 1. TIA/CVA: Acute infarct right middle cerebellar peduncle 2. Acute kidney injury 3. History of Parkinson's disease Plan: 1. TIA/CVA * Lowe ext weakness imrpove, confusion and speech imrpoved. * MRI as indicated above. Will await neurology recommendations for follow-up * Patient passed bedside swallow evaluation. Heart healthy diet started * lipid panel wnl except for HDL 38. 2. Acute kidney injury * Baseline creatinine of 0.9, 1.3 on admission with interval improvement with fluid hydration * Follow-up renal function and discontinue fluids once tolerating by mouth intake * Patient's symptoms on admission could partially be secondary to gabapentin side effects in the setting of acute kidney injury. We'll decrease gabapentin from 300 down to 200 mg QID. Adjust back to his normal home dose once renal function has improved 3. History of Parkinson's disease * Stable at this time. Patient has an outpatient follow-up with her neurologist /fret saw operator 4. Diet * Heart healthy 5. DVT prophylaxis * Heparin 5000 units subcutaneous 6. CODE STATUS * DNR/DNI Problem List: 1. NIYAH (acute kidney injury) 2. Cerebellar infarction Pain Ratin Pain Location: none Pain Goal: Remain pain free Pain Plan: tylenol Tomorrow's Labs & Rationales: CBC for h&H monitoring BEP for creatnine monitoring Consulting Request: Consulting Specialty: Neurology
[2016-04-10 08:14] VITALS: BP 152/90
[2016-04-10 09:30] LABS: ABSOLUTE BASOPHIL COUNT 0 /CUMM (0.0-0.2); ABSOLUTE EOSINOPHIL COUNT 0.5 /CUMM (0.0-0.7); ABSOLUTE GRANULOCYTE CT 4.8 /CUMM (1.4-6.5); ABSOLUTE MONOCYTE COUNT 0.5 /CUMM (0.10-0.60)
[2016-04-10 09:34] LABS: ABSOLUTE LYMPH COUNT 1.3 /CUMM (1.2-3.4); BASOPHIL % 0.2 % (0.0-2.0); EOSINOPHIL % 7.5 % (0-5); GRANULOCYTE % 66.4 % (42.2-75.2); MEAN CORPUSCULAR HGB 29.4 PG (27.0-31.0); MEAN CORPUSCULAR HGB CONC 33.7 G/DL (33.0-37.0); MEAN CORPUSCULAR VOLUME 87.4 FL (80.0-94.0); MEAN PLATELET VOLUME 9.1 FL (7.4-10.4); PLATELET COUNT 207 /CUMM (130-400); RBC DISTRIBUTION WIDTH 13.1 % (11.5-14.5); RED BLOOD CELL CT 4.84 /CUMM (4.70-6.10); WHITE BLOOD CELL COUNT 7.2 /CUMM (4.8-10.8)
[2016-04-10 09:37] LABS: HEMATOCRIT 42.3 % (42-52)
[2016-04-10 15:30] VITALS: BP 142/90
[2016-04-11 00:21] VITALS: BP 160/90
--- NOTE | 2016-04-11 07:35 | PN- Housestaff ---
VIRGILIO KING,[facility] 04/11/16 0735: Subjective Follow-up For: 1. TIA/CVA 2. Acute kidney injury 3. Parkinson's Tele-Events Since Last Visit: Sinus rhythm, transaminase, PVCs, heart rate in 70s Subjective: Patient seen and examined this morning. He was working with OT, he was able to ambulate with his walker but his gait was stable, will have PT reassess him today. Also he continues to have some residual slurring of speech as per . Continues to have urinary incontinence, he has baseline incontinence. Otherwise remains afebrile, otherwise is within normal limits. No other complaints. Review of Systems Constitutional: Denies: chills, fever. Cardiovascular: Denies: chest pain, palpitations. Respiratory: Denies: cough, short of breath, sputum production. Gastrointestinal: Denies: abdominal pain, constipation, diarrhea, nausea, vomiting. Genitourinary: Denies: dysuria, frequency. Objective Last 24 Hrs of Vital Signs/I&O Vital Signs Date Time Temp Pulse Resp B/P Pulse O2 O2 Flow FiO2 Ox Delivery Rate 04/11 0824 97.6 74 20 174/98 95 Room Air 04/11 0800 Room Air 04/11 0021 98.3 80 20 160/90 93 Room Air 04/10 1530 98.6 82 20 142/90 95 Room Air Intake & Output 04/11 1600 04/11 0800 04/11 0000 Intake Total 300 720 Output Total 475 475 Balance -175 245 Intake, Oral 300 720 Output, Urine 475 475 Physical Exam General Appearance: Alert, Oriented X3, Cooperative, No Acute Distress Cardiovascular: Regular Rate, Normal S1, Normal S2, No Murmurs Lungs: Clear to Auscultation, Normal Air Movement Abdomen: Normal Bowel Sounds, Soft, No Tenderness Neurological: Strength at 5/5 X4 Ext, Sensation Intact, Cranial Nerves 3-12 NL, unstable gait Extremities: No Clubbing, No Cyanosis, No Edema Current Medications: Current Medications Sig/Debra Start time Last Medication Dose Route Stop Time Status Admin Acetaminophen 650 MG Q6P PRN 04/09 0600 AC PO Aspirin Buffered 81 MG DAILY 04/09 1000 AC 04/11 PO 0922 Atorvastatin Calcium 80 MG 1700 04/09 1700 AC 04/10 PO 1808 Gabapentin 200 MG 4 TIMES/DAY 04/09 1000 AC 04/11 PO 0922 Heparin Sodium 5,000 UNIT Q8 04/09 0600 AC 04/11 (Porcine) SC 0645 Sertraline HCl 100 MG DAILY 04/09 1000 AC 04/11 PO 0922 Last 24 Hrs of Lab/Rm Results Last 24 Hrs of Labs/Mics: Laboratory Tests 04/11/16 0726: Anion Gap 12, Estimated GFR > 60, BUN/Creatinine Ratio 15.6, CBC w Diff NO MAN DIFF REQ, RBC 5.09, MCV 86.3, MCH 29.4, RDW 13.4, MPV 9.0, Gran % 65.8, Lymphocytes % 18.1 L, Monocytes % 9.1, Eosinophils % 6.6 H, Basophils % 0.4, Absolute Granulocytes 5.9, Absolute Lymphocytes 1.6, Absolute Monocytes 0.8 H, Absolute Eosinophils 0.6, Absolute Basophils 0, PUBS MCHC 34.0 Assessment/Plan Assessment: 70-year-old gentleman with past medical history significant for vascular dementia, possible underlying parkinsonism, has been seen and evaluated at [place], presented to the ED with a chief complaint of confusion lower extremity weakness and shuffling gait. Head CT: - No acute intracranial abnormality. - Moderate chronic microangiopathy and global cerebral volume loss. MRI head (04/09/2016): * Motion degraded study demonstrates a small area of possible acute infarction in the right middle cerebellar peduncle, superimposed upon advanced chronic small vessel ischemic changes and volume loss. * Problem list: 1. CVA: Acute infarct right middle cerebellar peduncle 2. Acute kidney injury 3. History of Parkinson's disease Plan: 1. CVA * Lowe ext weakness imrpove, confusion and speech imrpoved. * MRI as indicated above. Will await neurology recommendations for follow-up * Patient passed bedside swallow evaluation. Heart healthy diet started * lipid panel wnl except for HDL 38. 2. Acute kidney injury * Baseline creatinine of 0.9, 1.3 on admission with interval improvement with fluid hydration * Follow-up renal function and discontinue fluids once tolerating by mouth intake * Patient's symptoms on admission could partially be secondary to gabapentin side effects in the setting of acute kidney injury. We'll decrease gabapentin from 300 down to 200 mg QID. Adjust back to his normal home dose once renal function has improved 3. History of Parkinson's disease * Stable at this time. Patient has an outpatient follow-up with her neurologist /supervisor pumping station 4. Diet * Heart healthy 5. DVT prophylaxis * Heparin 5000 units subcutaneous 6. CODE STATUS * DNR/DNI Problem List: 1. Cerebellar infarction 2. Dementia 3. Shuffling gait Pain Ratin Pain Location: none Pain Goal: Remain pain free Pain Plan: mild pain pathway Tomorrow's Labs & Rationales: none Consulting Request: Consulting Specialty: Neurology CHANTEL JUAREZ MD 04/11/16 2142: Attending MD Review Statement Attending Statement Attending MD Statement: examined this patient, discuss w/resident/PA/TOE PULLER, agreed w/resident/PA/TOE PULLER, discussed with family, reviewed EMR data (avail), discussed with nursing, discussed with case mgmt, reviewed images, amended to note Attending Assessment/Plan: The patient was seen and discussed with house staff and family. Also spoke with the patient's Geriatric specialist office EDUCATION RESEARCH ANALYST (Dr. Jazmine Schmidt [phone]) and with his [place] Neurologist (Dr. Radha Alan ). Report of MRA from [place] suggests 80% stenosis of FILIPE, however body of report does not reflect this. brought in disk of what she thought was MRA, however it was an older MRI brain from 2014. Dr. Alan to check with imaging staff at [facility] to verify report. Carotid US reviewed here and does not indicate any significant stenosis. Still with loss of balance c/w posterior circulation CVA. Note- posterior circulation was normal on MRA report from [place]. Of note, patient's prior PCP was Dr. Dunn who is no longer in practice here. He lists Geriatrics as PCP, however they are consultants. Discussed option of Dr. Bello who is in same office as previous PCP.
[2016-04-11 08:24] VITALS: BP 174/98
[2016-04-11 09:16] LABS: ABSOLUTE BASOPHIL COUNT 0 /CUMM (0.0-0.2); ABSOLUTE EOSINOPHIL COUNT 0.6 /CUMM (0.0-0.7); ABSOLUTE GRANULOCYTE CT 5.9 /CUMM (1.4-6.5); ABSOLUTE LYMPH COUNT 1.6 /CUMM (1.2-3.4); ABSOLUTE MONOCYTE COUNT 0.8 /CUMM (0.10-0.60); BASOPHIL % 0.4 % (0.0-2.0); EOSINOPHIL % 6.6 % (0-5); GRANULOCYTE % 65.8 % (42.2-75.2); HEMATOCRIT 43.9 % (42-52); MEAN CORPUSCULAR HGB 29.4 PG (27.0-31.0); MEAN CORPUSCULAR VOLUME 86.3 FL (80.0-94.0); PLATELET COUNT 215 /CUMM (130-400); RBC DISTRIBUTION WIDTH 13.4 % (11.5-14.5); RED BLOOD CELL CT 5.09 /CUMM (4.70-6.10); WHITE BLOOD CELL COUNT 8.9 /CUMM (4.8-10.8)
--- NOTE | 2016-04-11 09:16 | ECHOCARDIOGRAM REPORT ---
ENRIKE HUNTLEY Age: 70 : 1945 Gender: M Exam Date: 04/10/2016 13:33 Exam Location: [facility] Ht (in): 68 Wt (lb): 210 BSA: 2.17 BP: 152 / 90 Ordering Physician: EDWIN TIDWELL MD Referring Physician: EDWIN TIDWELL MD Technologist: Nina Wen RUST Room Number: 180-01 Indications: CARDIOMYOPATHY Rhythm: Sinus Technical Quality: good FINDINGS Left Ventricle Normal left ventricular size with mild left ventricular hypertrophy. Normal systolic function with no obvious regional wall motion abnormalities. Diastolic filling pattern is consistent with impaired LV relaxation. The ejection fraction is visually estimated at 65%. Right Ventricle The right ventricle is normal in size and function. Right Atrium The right atrium is normal in size. Left Atrium The left atrium is normal in size. The interatrial septum is intact. Mitral Valve The mitral valve is normal in structure and function. There is no mitral regurgitation. Aortic Valve Mildly thickened and scleroticl aortic valve without significant stenosis. There is no aortic regurgitation. Tricuspid Valve The tricuspid valve is normal in structure and function. There is no tricuspid regurgitation. Pulmonary artery systolic pressure is normal. Pulmonic Valve Structurally normal pulmonic valve. There is no pulmonic regurgitation. Pericardium Normal pericardium without effusion. No pleural effusion. Great Vessels Normal aortic root dimension. The aortic arch and great vessels are well seen and are normal. CONCLUSIONS 1. Normal EF of 65% with impaired LV relaxation. 2. Mild left ventricular hypertrophy. 3. Mildly thickened and sclerotic aortic valve. Lamine Bill M.D. (Electronically Signed) Final Date: 11 April 2016 09:15 MEASUREMENTS (Male / Female) Normal Values 2D ECHO LV Diastolic Diameter PLAX 5.0 cm 4.2 - 5.9 / 3.9 - 5.3 cm LV Systolic Diameter PLAX 3.2 cm 2.1 - 4.0 cm LV Fractional Shortening PLAX 36.0 % 25 - 46 % LV Ejection Fraction 2D Teich 65.4 % IVS Diastolic Thickness 1.3 cm LVPW Diastolic Thickness 1.3 cm LV Relative Wall Thickness 0.5 RV Internal Dim ED PLAX 2.4 cm 1.9 - 3.8 cm LVOT Diameter 2.2 cm Aortic Root Diameter 3.4 cm LA Systolic Diameter LX 3.9 cm 3.0 - 4.0 / 2.7 - 3.8 cm LA Volume 36.0 cm 18 - 58 / 22 - 52 cm Ascending Aorta Diameter 3.7 cm DOPPLER AV Peak Velocity 193.0 cm/s AV Peak Gradient 14.9 mmHg AV Mean Velocity 136.0 cm/s AV Mean Gradient 8.0 mmHg AV Velocity Time Integral 34.3 cm LVOT Peak Velocity 101.0 cm/s LVOT Peak Gradient 4.1 mmHg LVOT Mean Velocity 64.9 cm/s LVOT Mean Gradient 2.0 mmHg LVOT Velocity Time Integral 20.6 cm LVOT Stroke Volume 78.3 cm AV Area Cont Eq vti 2.3 cm AV Area Cont Eq pk 2.0 cm MV Peak Velocity 122.0 cm/s MV Peak Gradient 6.0 mmHg MV Mean Velocity 71.0 cm/s MV Mean Gradient 2.0 mmHg Mitral E Point Velocity 66.6 cm/s Mitral A Point Velocity 104.0 cm/s Mitral E to A Ratio 0.6 MV PHT Velocity 92.9 cm/s MV Deceleration [place] 360.0 cm/s MV Pressure Half Time 77.4 ms MV Area PHT 2.8 cm MV Deceleration Time 254.0 ms PV Peak Velocity 136.0 cm/s PV Peak Gradient 7.4 mmHg PV Mean Velocity 86.1 cm/s PV Mean Gradient 4.0 mmHg PV Velocity Time Integral 22.9 cm LV E' Lateral Velocity 10.3 cm/s Mitral E to LV E' Lateral Ratio 6.5 LV E' Septal Velocity 4.2 cm/s Mitral E to LV E' Septal Ratio 15.9
--- NOTE | 2016-04-11 13:29 | Discharge Summary ---
See Addendum Visit Information Visit Dates Admission Date: 04/09/16 Discharge Date: 04/12/2016 Hospital Course Course Attending Physician: CHANTEL JUAREZ MD Primary Care Physician: UNKNOWN Consulting Request: Consulting Specialty: Neurology Consulting Physician: [facility] Course: Mr. Marquez is a 70 y/o M with PMHx of vascular parkinsonism, peripheral neuropathy , HTN and dementia who presents to the ED with confusion, leg weakness and shuffling gait. The night of current presentation, patient's found him slouched on the couch and unable to get up. He could only shuffle his feet a few steps and was very confused and lethargic. Of note, patient walks with a walker at baseline. She called EMS who brought patient to the ED.Patient endorsed headache and dizziness but no falls. There was no chest pain, palpitations or shortness of breath. Of note, patient had a flu shot in the morning prior to current presentation. Patient follows up with a neurologist at [place] and was diagnosed with vascular parkinsonism per his . Vitals on admission: Depression 98.7, pulse 100, respiratory rate 18, blood pressure 107/69 on room air. On examination general Appearance: Alert, No Acute Distress Skin: Grossly normal HEENT: [place] Neck: Supple, No JVD Cardiovascular: S1 plus S2 +0 without any murmurs Lungs: bilateral basal crackles Abdomen: Normal Bowel Sounds, Soft, No Tenderness Neurological: Normal Speech, Strength at 5/5 X4 Ext, Cranial Nerves 3-12 NL, Reflexes 2+ Extremities: No edema in the lower lower extremity. Pertinent labs: Leukocytosis 14.9, with H&H 13.7/39.7, and elevated creatinine 1.3. Chest x-ray :Low lung volumes with mild bibasilar opacities that are favored to reflect atelectasis. Central vascular congestion without overt edema. CT head :No acute intracranial abnormality. Moderate chronic microangiopathy and global cerebral volume loss Carotid doppler:No hemodynamically significant stenosis in either carotid artery.Normal antegrade flow seen in left vertebral artery. The right vertebral artery is not visualized. MRI:Motion degraded study demonstrates a small area of possible acute infarction in the right middle cerebellar peduncle, superimposed upon advanced chronic small vessel ischemic changes and volume loss. Neurologist saw the patient and he recommended physical therapy and avoidance of narcotic analgesics. Throughout hospitalization we continued outpatient medications which includes Aspirin, Lipitor, Sertaline, and Gabapentin. Echocardiogram was done which shows: 1. Normal EF of 65% with impaired LV relaxation. 2. Mild left ventricular hypertrophy. 3. Mildly thickened and sclerotic aortic valve. Patient remains stable, on discharge date he denies any complaint. His vitals and labs was stable. Patient was seen by PT who recommended STR. For discharge meds please see CMR. Complications: Non Allergies: Coded Allergies: NO KNOWN ALLERGIES (04/11/16) Disposition Summary Disposition Principal Diagnosis: 1. CVA 2. Acute kidney injury 3. Parkinson's Additional Diagnosis: HTN, Neuropathy Discharge Disposition: STR Discharge Instructions General Discharge Information Code Status: Do Not Resucitate/Intubat Patient's Diet: Heart healthy diet Patient's Activity: Limited Follow-Up Instructions/Appts: -Follow up with your PCP in 1 week after discharge -F/U with your health administrator in 1 week after discharge. -Take your medications as prescribed. Medications at Discharge Discharge Medications: Stop taking the following medications: Atorvastatin Calcium (Atorvastatin Calcium) 10 MG TABLET ORAL Qty = 30 Oxycodone HCl/Acetaminophen (Percocet 5-325 MG Tablet) 5 MG-325 MG TABLET ORAL TWICE DAILY as needed for PAIN Qty = 15 Alfuzosin HCl (Alfuzosin HCl ER) 10 MG TAB.ER.24H ORAL DAILY Continue taking these medications: Sertraline HCl (Sertraline HCl) 100 MG TABLET 1 Tablet ORAL DAILY Qty = 30 Gabapentin (Gabapentin) 300 MG CAPSULE 1 Capsule ORAL 4 TIMES A DAY Qty = 120 Aspirin (Ecotrin*) 81 MG TABLET.DR 1 Tablet ORAL DAILY Start taking the following new medications: Atorvastatin Calcium (Atorvastatin Calcium) 80 MG TABLET 1 Tablet ORAL 5 PM Qty = 30 No Refills Doxazosin (Cardura) 1 MG TABLET 1 Milligram ORAL DAILY Qty = 30 No Refills Copies To: LARRY KING,CHANTEL
--- NOTE | 2016-04-11 14:10 | Patient Discharge Instructions ---
Discharge Instructions General Discharge Information You were seen/treated for: CVA: Acute infarct right middle cerebellar peduncle Acute kidney injury History of Parkinson's disease Special Instructions: Please follow up with your primary care physician, behavioral assistant and neurologist in one week. Diet Continue normal diet: Yes Recommended Diet: Heart Healthy Activity Activity Self Limited: Yes Acute Coronary Syndrome Inclusion Criteria At DC or during hospital stay patient has or had the following: ACS DIAGNOSIS No Discharge Core Measures Meds if any: Prescribed or Continued at Discharge Meds if any: NOT Prescribed or Continued at Discharge Congestive Heart Failure Inclusion Criteria At DC or during hospital stay patient has or had the following: CHF DIAGNOSIS No Discharge Core Measures Meds if any: Prescribed or Continued at Discharge Meds if any: NOT Prescribed or Continued at Discharge Cerebrovascular accident Inclusion Criteria At DC or during hospital stay patient has or had the following: CVA/TIA Diagnosis Yes Discharge Core Measures Meds if any: Prescribed or Continued at Discharge Antithrombotic No Statin (required if LDL =>70) Yes Anticoagulant Yes Meds if any: NOT Prescribed or Continued at Discharge No Antithrombotic d/t Medical Contraindication Venous thromboembolism Inclusion Criteria VTE Diagnosis No VTE Type NONE VTE Confirmed by (Test) NONE Discharge Core Measures - Per Current guidelines, there needs to be overlap - treatment for the first 5 days of Warfarin therapy. - If discharged on Warfarin prior to 5 days of - overlap therapy, the patient will need to be - assessed for post discharge needs including - *Post discharge parental anticoagulation - *Warfarin and/or parental anticoagulation education - *Follow up date to check INR post discharge At least 5 days overlap therapy as Inpatient No Meds if any: Prescribed or Continued at Discharge Note: Overlap Therapy is Warfarin and Anticoagulant Meds if any: NOT Prescribed or Continued at Discharge
[2016-04-11] MEDS ORDERED: ATORVASTATIN CA80 M1 PO (14:17)
[2016-04-11 15:43] VITALS: BP 158/98
[2016-04-11] MEDS ORDERED: CARDURA1 M1 PO (15:53)
[2016-04-11 16:49] VITALS: BP 174/90
[2016-04-11 22:35] VITALS: BP 120/80
--- NOTE | 2016-04-12 07:33 | PN- Housestaff ---
VIRGILIO KING,[facility] 04/12/16 0733: Subjective Follow-up For: CVA Acute kidney inj Parkinson's Subjective: Patient seen and examined this morning. He was lying comfortably in bed in no acute distress. Continues to have some residual speech slurring, and gait instability otherwise no complaints, white is within normal gait. Review of Systems Constitutional: Denies: chills, fever. Cardiovascular: Denies: chest pain, palpitations. Respiratory: Denies: cough, short of breath, sputum production. Gastrointestinal: Denies: abdominal pain, constipation, diarrhea, nausea, vomiting. Genitourinary: Denies: dysuria, frequency. Objective Last 24 Hrs of Vital Signs/I&O Vital Signs Date Time Temp Pulse Resp B/P Pulse O2 O2 Flow FiO2 Ox Delivery Rate 04/12 1110 98.0 86 18 130/80 04/12 0828 98.0 86 18 130/80 97 Room Air 04/12 0800 Room Air 04/11 2235 98.0 96 18 120/80 96 Room Air 04/11 1649 85 174/90 04/11 1600 Room Air 04/11 1543 97.6 82 20 158/98 93 Room Air 04/11 1445 Room Air 04/11 1319 Room Air Intake & Output 04/12 1600 04/12 0800 04/12 0000 Intake Total 60 600 Output Total 1 Balance 60 599 Intake, IV 10 Intake, Oral 50 600 Output, Other 1 Physical Exam General Appearance: Alert, Oriented X3, Cooperative, No Acute Distress Cardiovascular: Regular Rate, Normal S1, Normal S2, No Murmurs Lungs: Clear to Auscultation, Normal Air Movement Abdomen: Normal Bowel Sounds, Soft, No Tenderness Neurological: Normal Speech, Strength at 5/5 X4 Ext, Sensation Intact, Cranial Nerves 3-12 NL Current Medications: Current Medications Sig/Debra Start time Last Medication Dose Route Stop Time Status Admin Acetaminophen 650 MG Q6P PRN 04/09 0600 AC PO Aspirin Buffered 81 MG DAILY 04/09 1000 AC 04/12 PO 0911 Atorvastatin Calcium 80 MG 1700 04/09 1700 AC 04/11 PO 1645 Doxazosin Mesylate 1 MG DAILY 04/11 1456 AC 04/12 PO 0911 Gabapentin 200 MG 4 TIMES/DAY 04/09 1000 AC 04/12 PO 0911 Heparin Sodium 5,000 UNIT Q8 04/09 0600 AC 04/12 (Porcine) SC 0521 Potassium Chloride 60 MEQ ONCE ONE 04/12 0845 DC 04/12 PO 04/12 0846 0911 Sertraline HCl 100 MG DAILY 04/09 1000 AC 04/12 PO 0911 Assessment/Plan Assessment: 70-year-old gentleman with past medical history significant for vascular dementia, possible underlying parkinsonism, has been seen and evaluated at [place], presented to the ED with a chief complaint of confusion lower extremity weakness and shuffling gait. Head CT: - No acute intracranial abnormality. - Moderate chronic microangiopathy and global cerebral volume loss. MRI head (04/09/2016): * Motion degraded study demonstrates a small area of possible acute infarction in the right middle cerebellar peduncle, superimposed upon advanced chronic small vessel ischemic changes and volume loss. * Problem list: 1. CVA: Acute infarct right middle cerebellar peduncle 2. Acute kidney injury 3. History of Parkinson's disease Plan: 1. CVA * Lower ext weakness imrpove, confusion and speech imrpoved. * MRI as indicated above. Will await neurology recommendations for follow-up * Patient passed bedside swallow evaluation. Heart healthy diet started * lipid panel wnl except for HDL 38. * Patient to be discharged to short-term rehabilitation. 2. Acute kidney injury * Baseline creatinine of 0.9, 1.3 on admission with interval improvement with fluid hydration * Follow-up renal function and discontinue fluids once tolerating by mouth intake * Patient's symptoms on admission could partially be secondary to gabapentin side effects in the setting of acute kidney injury. We'll decrease gabapentin from 300 down to 200 mg QID. Adjust back to his normal home dose once renal function has improved 3. History of Parkinson's disease * Stable at this time. Patient has an outpatient follow-up with her neurologist /merchandise deliverer 4. Diet * Heart healthy 5. DVT prophylaxis * Heparin 5000 units subcutaneous 6. CODE STATUS * DNR/DNI Problem List: 1. Cerebellar infarction 2. NIYAH (acute kidney injury) 3. Dementia 4. Shuffling gait 5. Weakness Pain Ratin Pain Location: None Pain Goal: Remain pain free Pain Plan: Mild pain pathway Tomorrow's Labs & Rationales: None patient to be discharged today Consulting Request: Consulting Specialty: Neurology Consulting Physician: Dr.Barash LARRY KING,CHANTEL 04/12/16 5533: Attending MD Review Statement Attending Statement Attending MD Statement: examined this patient, discuss w/resident/PA/VOLUMETRIC WEIGHER, agreed w/resident/PA/VOLUMETRIC WEIGHER, discussed with family, reviewed EMR data (avail), discussed with nursing, discussed with case mgmt, amended to note Attending Assessment/Plan: The patient was seen and discussed with house staff. Agree with the plan of care as outlined. OK to discharge to [facility] today.
[2016-04-12 08:28] VITALS: BP 130/80
[2016-04-12 11:10] VITALS: BP 130/80
== END 2016-04-12 15:00 | DRG 65 ==
LOC: ENRESERVDT → ENRESERVTM → ERH 23:54 → ERHI 04-09 04:12 → 1NO 04-09 05:57 → ENPENDDIS 04-09 13:38 → 1NO 04-09 13:38
PROVIDERS: Pediatrics; Student in an Organized Health Care Education/Training Program; ADMIT Internal Medicine
DX: I63.9 Cerebral infarction, unspecified (principal); N17.9 Acute kidney failure, unspecified; G20 Parkinson's disease; F02.80 Dementia in other diseases classified elsewhere, unspecified severity, without behavioral disturbance, psychotic disturbance, mood disturbance, and anxiety; G62.9 Polyneuropathy, unspecified; I10 Essential (primary) hypertension; E78.5 Hyperlipidemia, unspecified; E66.9 Obesity, unspecified; Z68.33 Body mass index [BMI] 33.0-33.9, adult; G89.29 Other chronic pain; M54.5 Low back pain
CPT/HCPCS: 1NSP; 70551; 36415; 80307; 81001; 82436; 87040; 87086; 93005; 93010; 93306; 97110-GO; 97112-GO; 97116-GO; 97116-GP; 97161-GP; 97165-GO; 97530-GO; G0480; J1644